=== PATIENT | female | born 1980 | race African-American/Black ===

== ENCOUNTER 2017-08-09 10:32 | Emergency (ER) | payer OTHER ==
[~2017-08-09] VITALS: Ht 162.6 cm; Wt 106.6 kg
--- NOTE | 2017-08-09 11:08 | NUR ---
Patient discharged to home in stable conditon. Written and verbal after care instructions given to patient. Patient verbalizes understanding of instructions.
== END 2017-08-09 11:09 | disposition home or self-care (01) ==
LOC: ER 10:32
DX: I10 Essential (primary) hypertension (principal); E11.9 Type 2 diabetes mellitus without complications
CPT/HCPCS: A4663